=== PATIENT | male | born 2005 | race Caucasian/White ===

== ENCOUNTER 2024-03-11 12:07 | Emergency (ER) | payer OTHER, SELFPAY ==
[2024-03-11 12:08] VITALS: BP 146/88; PULSE 76; RESP 18; TEMP 36.3; O2SAT 100; BMI 26.9
--- NOTE | 2024-03-11 12:21 | EX.ED.DYSGE1 ---
HPI <KRISS Santoyo - Last Filed: 03/11/24 13:53> History of Present Illness Chief Complaint: Chest Pain Narrative Narrative: 18-year-old male with past medical history of SVT, PVCs, POTS presents with chest pain that started around 9 AM while driving. He has pressure in the mid and left chest that radiates to the left arm. He feels short of breath and has palpitations. No nausea vomiting or abdominal pain. He states he gets similar chest pain a couple times a week but it only lasts a few minutes. He attributes it to his cardiac history. He sees a gas appliance repairer in [place] and had an ablation 4 months ago which helped his symptoms short-term but they returned so he is scheduled for another ablation. He takes metoprolol 12.5 mg 4 times a day. He does this dosing to avoid side effects. He denies recent fever or illness. [facility] <KRISS Santoyo - Last Filed: 03/11/24 13:53> [facility] Medical History (Updated 03/11/24 @ 13:25 by KRISS Santoyo) PVC (premature ventricular contraction) SVT (supraventricular tachycardia) POTS (postural orthostatic tachycardia syndrome) Home Medications ?Medication ?Instructions ?Recorded ?Last Taken ?Type metoprolol succinate 50 mg 50 mg PO DAILY 03/11/24 Unknown History tablet,extended release 24 hr Allergy/AdvReac Type Severity Reaction Status Date / Time Penicillins (PCN) AdvReac Severe Other Verified 03/11/24 12:21 Social History Smoking Status: Never smoker ROS <KRISS Santoyo - Last Filed: 03/11/24 13:53> ROS ED ROS Narrative Constitutional: Negative for fever, chills, malaise.. CVS: Positive for palpitations, chest pain. Negative for syncope. Respiratory: Positive for shortness of breath. GI: Negative for abdominal pain, nausea, vomiting. EXAM <KRISS Santoyo - Last Filed: 03/11/24 13:53> Physical Exam Narrative Exam Narrative: CONST: Patient sitting in no acute distress. EYES: Normal inspection. NECK: Normal inspection. RESP: No respiratory distress, CTAB. CVS: Regular rate and rhythm, no murmur, no gallop. ABD: Soft and nontender, no guarding or rebound, nondistended. SKIN: Color normal, no rash, warm, dry, intact. EXTREMITIES: Normal appearance, no pedal edema. NEURO: Alert and answering questions appropriately. PSYCH: Normal affect. Const Vital Signs: 03/11/24 12:08 03/11/24 13:00 Temperature 97.4 F L Temperature Source Temporal Pulse Rate 76 Respiratory Rate 18 Respiratory Effort Normal Non-Labored Respiratory Pattern Normal Blood Pressure 146/88 H Blood Pressure Mean 107 Pulse Ox 100 Oxygen Delivery Method Room Air <Dr. Ran Palacios MD - Last Filed: 03/11/24 13:26> Physical Exam Const Vital Signs: 03/11/24 12:08 03/11/24 13:00 Temperature 97.4 F L Temperature Source Temporal Pulse Rate 76 Respiratory Rate 18 Respiratory Effort Normal Non-Labored Respiratory Pattern Normal Blood Pressure 146/88 H Blood Pressure Mean 107 Pulse Ox 100 Oxygen Delivery Method Room Air MDM <KRISS Santoyo - Last Filed: 03/11/24 13:53> [facility] Narrative Medical decision making narrative: 18-year-old male with history of SVT status post ablation presents with chest pain and palpitations female started this morning at rest. Before he appears well and nontoxic. Vital signs stable. He is in normal sinus rhythm in the 70s. CBC, BMP, troponin are all normal. CXR shows no acute process. During the entirety of his stay here he has been in normal sinus rhythm. He is PERC negative so I did not order D-dimer as I am not concerned for PE. He states has had the similar chest pain/palpitation episodes before. I feel he can be discharged safely to follow-up with his gas appliance repairer. Return precautions discussed. I have personally performed a face to face assessment of the patient and have reviewed the MARIIA Note. I performed a substantive portion of the visit including all aspects of the following. My cuevas findings include: History is 18-year-old male history of SVT and POTS. Cardiac ablation about 4 months ago. Since that time he has had recurrent SVT and needs another ablation. He had chest discomfort today last several hours. No history of DVT or PE or risk factors. No fever. No IV drug use. Exam is [well-appearing 18-year-old male. Vital signs are stable afebrile. Pulse ox 9% on room air no signs of hypoxia. No distress. I believe it is his father at bedside. H EENT exam normal. Moist mucous membranes. Neck nontender no JVD. Lungs clear to auscultation bilaterally. Heart regular rhythm rate about 70 no murmur. Chest wall nontender. Abdomen soft nontender. Moving all 4 extremities. Nontender no edema. Normal asbestos brake lining finisher strength. Calves are nontender without cords. Is awake and alert. No focal motor deficits.] Medical Decision Making [18-year-old with chest pain. No DVT or PE history. No risk factors. History of SVT but no history of obstructive coronary disease. Cardiac workup if it is good he will be discharged to home.] Other additions or changes: [None] Lab Data Labs: Laboratory Results - last 24 hr 03/11/24 12:53 WBC 4.5 RBC 5.21 Hgb 14.8 Hct 44.0 MCV 84.5 MCH 28.4 MCHC 33.6 RDW Std Deviation 35.9 RDW Coeff of Emmie 11.9 Plt Count 186 MPV 10.2 Immature Gran % (Auto) 0.200 Neut % (Auto) 48.8 Lymph % (Auto) 38.9 [place] % (Auto) 9.8 Eos % (Auto) 1.6 Baso % (Auto) 0.7 Absolute Neuts (auto) 2.2 Absolute Lymphs (auto) 1.74 Nucleated RBC % 0 Sodium 139 Potassium 3.7 Chloride 105 Carbon Dioxide 28.0 Anion Gap 6 BUN 17 Creatinine 0.83 Estim Creat Clear Calc 165.06 Est GFR (MDRD) Af Amer 152 Est GFR (MDRD) Non-Af 125 BUN/Creatinine Ratio 20.5 H Glucose 95 Calcium 9.8 Troponin I High Sens 4 Radiography Diagnostic Testing: Clinical Impression(s) from Imaging Studies Chest X-Ray 03/11/24 13:05 IMPRESSION: No acute findings in the chest. Electronically Signed: Christian Nicholson MD at 13:44 EST , ED attending interpretation of 2 view chest x-ray shows normal heart size, no acute infiltrate, edema, or effusion. EKG Initial EKG: Attestation: I personally reviewed and interpreted this EKG as follows: Interpretation: Sinus Rhythm and No Acute Injury Pattern Comments: Normal sinus rhythm at 77 bpm No acute ischemic changes Lead II and III baseline appear to have sawtooth pattern but this is more likely artifact than atrial flutter <Dr. Ran Palacios MD - Last Filed: 03/11/24 13:26> [facility] Narrative Medical decision making narrative: I have personally performed a face to face assessment of the patient and have reviewed the MARIIA Note. I performed a substantive portion of the visit including all aspects of the following. My cuevas findings include: History is 18-year-old male history of SVT and POTS. Cardiac ablation about 4 months ago. Since that time he has had recurrent SVT and needs another ablation. He had chest discomfort today last several hours. No history of DVT or PE or risk factors. No fever. No IV drug use. Exam is [well-appearing 18-year-old male. Vital signs are stable afebrile. Pulse ox 9% on room air no signs of hypoxia. No distress. I believe it is his father at bedside. H EENT exam normal. Moist mucous membranes. Neck nontender no JVD. Lungs clear to auscultation bilaterally. Heart regular rhythm rate about 70 no murmur. Chest wall nontender. Abdomen soft nontender. Moving all 4 extremities. Nontender no edema. Normal asbestos brake lining finisher strength. Calves are nontender without cords. Is awake and alert. No focal motor deficits.] Medical Decision Making [18-year-old with chest pain. No DVT or PE history. No risk factors. History of SVT but no history of obstructive coronary disease. Cardiac workup if it is good he will be discharged to home.] Other additions or changes: [None] History & Record Review Discussion w/independent historian: Patient Lab Data Attestation: I reviewed the patient's lab results. Lab results narrative: CBC white count of 4 H&H of 14.8 and 44. Platelets 186 Labs: Laboratory Results - last 24 hr 03/11/24 12:53 WBC 4.5 RBC 5.21 Hgb 14.8 Hct 44.0 MCV 84.5 MCH 28.4 MCHC 33.6 RDW Std Deviation 35.9 RDW Coeff of Emmie 11.9 Plt Count 186 MPV 10.2 Immature Gran % (Auto) 0.200 Neut % (Auto) 48.8 Lymph % (Auto) 38.9 [place] % (Auto) 9.8 Eos % (Auto) 1.6 Baso % (Auto) 0.7 Absolute Neuts (auto) 2.2 Absolute Lymphs (auto) 1.74 Nucleated RBC % 0 Sodium 139 Potassium 3.7 Chloride 105 Carbon Dioxide 28.0 Anion Gap 6 BUN 17 Creatinine 0.83 Estim Creat Clear Calc 165.06 Est GFR (MDRD) Af Amer 152 Est GFR (MDRD) Non-Af 125 BUN/Creatinine Ratio 20.5 H Glucose 95 Calcium 9.8 Troponin I High Sens 4 Radiography Diagnostic Testing: Clinical Impression(s) from Imaging Studies Chest X-Ray 03/11/24 13:05 IMPRESSION: No acute findings in the chest. Electronically Signed: Christian Nicholson MD at 13:44 EST , Discharge Plan Triage Chief Complaint: Chest Pain ED Midlevel Provider: Linda Frazier ED Provider: Rna Palacios Dx/Rx/DC Orders Clinical Impression: Chest pain, Palpitations Instructions: ED Chest Pain, Uncertain Cause, ED Palpitations Prescriptions: No Action metoprolol succinate 50 mg tablet extended release 24 hr 50 mg PO DAILY Primary Care Provider: Mikel De Leon,Out of Referrals: Mikel De Leon,Out of [Primary Care Provider] - Activity Restrictions/Additional Instructions: Your blood tests and chest x-ray are normal. Your heart has been in a normal rhythm while in the emergency department. I recommend follow-up with your gas appliance repairer. Print Language: [place] Disposition Disposition: Home, Self Care
--- NOTE | 2024-03-11 13:05 | RAD_ITS ---
EXAM: XR CHEST, 2 VIEWS CLINICAL INDICATION: chest pain TECHNIQUE: Frontal and lateral views of the chest. COMPARISON: No relevant prior studies available. FINDINGS: LUNGS AND PLEURAL SPACES: Normal. No consolidation or edema. No pneumothorax. No effusion. HEART: Normal heart size. MEDIASTINUM: No mediastinal or hilar mass. BONES/JOINTS: No acute abnormality. TUBES, LINES AND DEVICES: Loop recorder in place. RAD/Chest PA and Lateral IMPRESSION: No acute findings in the chest. Electronically Signed: Christian Nicholson MD at 13:44 EST ,
[2024-03-11 13:19] LABS: Absolute Lymphocyte Count 1.74 X10^3/uL (0.83-4.51); Absolute Neutrophil Count 2.2 X10^3/uL (2.0-7.7); Basophil# 0.03 X10^3/uL; Basophil% 0.7 % (0-1); Eosinophil# 0.07 X10^3/uL; Eosinophils% 1.6 % (0-5); Hemoglobin 14.8 g/dL (13.0-16.5); Lymphocyte # 1.74 X10^3/ul (0.83-4.51); Lymphocyte % 38.9 % (19-41); Mean Corp Hgb Conc 33.6 g/dL (32-36); Mean Corpuscular Hgb 28.4 pg (27.0-32.0); Mean Corpuscular Volume 84.5 fL (80-94); Mean Platelet Vol. 10.2 fl (6.2-12.0); Monocyte# 0.44 X10^3/uL; Monocyte% 9.8 % (0-10); NRBC Flagged by Analyzer 0 % (0-5); Neutrophil # 2.18 X10^3/uL (2.7-7.7); Neutrophil % 48.8 % (47-70); Platelet Count 186 K/mm3 (150-450); RBC Distribution Width CV 11.9 % (11.6-14.6); RBC Distribution Width SD 35.9 fl (35.1-43.9); Red Blood Count 5.21 M/mm3 (4.6-6.2); White Blood Count 4.5 K/mm3 (4.4-11.0)
[2024-03-11 13:29] LABS: Anion Gap 6 (5-15); BUN 17 mg/dL (7-18); BUN/Creat Ratio 20.5 RATIO (10-20); Calcium,Total 9.8 mg/dL (8.5-10.1); Chloride 105 mmol/L (98-107); Creatinine, Serum 0.83 mg/dL (0.70-1.30); EST Glomerular Filtration Rate 125 mL/min (>60); Est Glom Filt Rate - Afr Amer 152 mL/min (>60); Estimated Creatinine Clearance 165.06 ml/min; Glucose 95 mg/dL (74-106); Potassium 3.7 mmol/L (3.5-5.1); Sodium Level 139 mmol/L (136-145); Troponin-I HS 4 pg/mL (3.0-78.0)
[2024-03-11 14:17] VITALS: BP 114/61; PULSE 79; RESP 16; O2SAT 100
== END 2024-03-11 14:18 | disposition home or self-care (01) ==
PROVIDERS: Physician Assistant; Emergency Provider Emergency Medicine; Referring Provider Emergency Medicine; Visit Provider Emergency Medicine
DX: R07.89 Other chest pain (principal); R00.2 Palpitations; I47.10 Supraventricular tachycardia, unspecified; Z79.899 Other long term (current) drug therapy